=== PATIENT | male | born 1950 | race Caucasian/White ===

== ENCOUNTER → 2016-11-23 | Outpatient (CLI) | payer BC, MEDICARE ==
[~2016-11-23] MED LIST: CENT1TAB PO; CIPR500T89 PO; LISI-538 PO; OXYC15TA76 PO; TYLE650T30 PO
== END | disposition home or self-care (01) ==
LOC: M LAB 08:55
PROVIDERS: ATTEND Urology
DX: C61 Malignant neoplasm of prostate (principal)

== ENCOUNTER → 2017-03-01 | Outpatient (CLI) | payer BC, MEDICARE | LOC: M LAB 13:16 | PROVIDERS: ATTEND Urology | DX: C61 Malignant neoplasm of prostate (principal) ==

== ENCOUNTER → 2017-06-07 | Outpatient (CLI) | payer BC ==
[~2017-06-07] MED LIST changes: +CIPR-249 PO; -CIPR500T89 PO
== END ==
LOC: M LAB 10:51
PROVIDERS: ATTEND Urology
DX: C61 Malignant neoplasm of prostate (principal)

== ENCOUNTER → 2017-09-06 | Outpatient (CLI) | payer BC | LOC: M LAB 11:33 | PROVIDERS: ATTEND Urology | DX: C61 Malignant neoplasm of prostate (principal) ==

== ENCOUNTER → 2017-12-13 | Outpatient (CLI) | payer BC ==
[2017-12-13 11:45] LABS: PROSTATIC SPECIFIC AG MONITOR < 0.01 NG/ML (< 4.0)
== END ==
LOC: M LAB 10:28
DX: Z85.46 Personal history of malignant neoplasm of prostate (principal)
CPT/HCPCS: 84153

== ENCOUNTER → 2018-11-12 | Outpatient (REF) | payer BC ==
[2018-11-12 13:53] LABS: FREE T4 1.02 NG/DL (0.76-1.46); RHEUMATOID FACTOR QUANT < 10.0 IU/ML (<15.0); TOTAL PROTEIN 7.1 GM/DL (6.4-8.2)
[2018-11-12 14:04] LABS: HEMOGLOBIN A1c 6.5 %
[2018-11-12 14:41] LABS: FOLATE 19.4 NG/ML
[2018-11-14 08:30] LABS: VITAMIN B12 LEVEL 731 PG/ML (232-1245)
[2018-11-18 10:36] LABS: PTT LUPUS TYPE ANTICOAG SCREEN 1.1 (0-1.2)
[2018-11-18 11:19] LABS: ALBUMIN % 59.3 % (55.8-66.1); ALPHA-1-GLOBULIN % 4.3 % (2.9-4.9); ALPHA-2-GLOBULINS % 13.5 % (7.1-11.8); BETA-1-GLOBULINS % 5.8 % (4.7-7.2); BETA-2-GLOBULINS % 5.2 % (3.2-6.5); GAMMA GLOBULIN % 11.9 % (11.1-18.8)
[2018-11-18 11:20] LABS: ALBUMIN 4.21 GM/DL (3.29-5.55); ALPHA-1-GLOBULINS 0.31 GM/DL (0.17-0.41); ALPHA-2-GLOBULINS 0.96 GM/DL (0.42-0.99); BETA-1-GLOBULINS 0.41 GM/DL (0.28-0.60); BETA-2-GLOBULINS 0.37 GM/DL (0.19-0.55); GAMMA GLOBULINS 0.84 GM/DL (0.65-1.58)
[2018-11-22 00:07] LABS: ANTINUCLEAR ANTIBODIES DIRECT Negative (Negative); VITAMIN B1 LEVEL WHOLE BLOOD 172.9 nmol/L (66.5-200.0); VITAMIN B6,PYRIDOXAL PHOSPHATE 27.3 ug/L (5.3-46.7); VITAMIN E(ALPHA TOCOPHEROL) 15.3 mg/L (9.0-29.0); VITAMIN E(GAMMA TOCOPHEROL) 0.7 mg/L (0.5-4.9)
== END ==
LOC: M LABNEURO 11:02
PROVIDERS: ATTEND Psychiatry & Neurology Neurology
DX: G62.9 Polyneuropathy, unspecified (principal); M54.5 Low back pain; G89.29 Other chronic pain

== ENCOUNTER → 2018-12-18 | Outpatient (CLI) | payer BC | LOC: M LAB 14:31 | PROVIDERS: ATTEND Nurse Practitioner Women's Health | DX: Z85.46 Personal history of malignant neoplasm of prostate (principal) ==

== ENCOUNTER → 2019-01-22 | Outpatient (CLI) | payer BC ==
[2019-01-22 12:29] LABS: CHOLESTEROL RISK RATIO 5.628 (<5)
[2019-01-22 12:39] LABS: HEMOGLOBIN A1c 6.6 %
== END ==
LOC: M LAB 11:13
PROVIDERS: ATTEND Nurse Practitioner
DX: I10 Essential (primary) hypertension (principal); E78.5 Hyperlipidemia, unspecified; R73.01 Impaired fasting glucose

== ENCOUNTER → 2019-01-22 | Outpatient (CLI) | payer BC ==
[2019-01-22 12:26] LABS: ALBUMIN 3.8 GM/DL (3.2-5.2); ALT/SGPT 28 U/L (12-78); BILIRUBIN,DIRECT < 0.1 MG/DL (0.0-0.2); BILIRUBIN,TOTAL 0.5 MG/DL (0.2-1.0); TOTAL PROTEIN 6.9 GM/DL (6.4-8.2)
[2019-01-23 10:26] LABS: HEPATITIS B SURFACE ANTIBODY NEGATIVE (POSITIVE)
[2019-01-23 10:37] LABS: HEPATITIS B SURFACE ANTIGEN NEGATIVE (NEGATIVE)
[2019-01-27 08:10] LABS: ANTI-MITOCHONDRIAL ANTIBODY <20.0 Units (0.0-20.0); ANTI-SMOOTH MUSCLE ANTIBODY 8 Units (0-19); ANTINUCLEAR ANTIBODIES DIRECT Negative (Negative); HEPATITIS A IgG TOTAL Negative (Negative); LIVER-KIDNEY MICROSOMAL ABY <20.1 Units (0.0-20.0)
== END ==
LOC: M LAB 11:10
PROVIDERS: ATTEND Internal Medicine Gastroenterology
DX: K76.0 Fatty (change of) liver, not elsewhere classified (principal)

== ENCOUNTER 2019-03-12 07:42 | Day surgery (SDC) | payer BC ==
[~2019-03-12] VITALS: Ht 188 cm; Wt 97.5 kg
[~2019-03-12 07:42] MED LIST changes: +FLAX1300 PO; +METF-839 PO; +MULTCAP PO; +NS 1,000 ML IV ONE; +RA M200C4 PO; +RA T500C2 PO
[2019-03-12] MEDS ORDERED: LIDOCAINE 2% INJ 100 MG/5 ML SDV (FOR ANES.) As Ordered ONE (09:03)
[2019-03-12] MEDS ORDERED: PROPOFOL 200 MG/20 ML VIAL As Ordered ONE (09:03)
--- NOTE | 2019-03-12 09:58 | ROOR ---
Patient Name: Yosvany Stanton Procedure Date: 03/12/2019 9:09 AM Date of : 1950 Age: 68 Room: [facility] Gender: Male Note Status: Finalized Procedure: Colonoscopy Indications: Screening for colorectal malignant neoplasm Providers: Miki Solares MD Referring MD: Jasmyne Griffin NP Requesting Provider: Medicines: Monitored Anesthesia Care Complications: No immediate complications. Procedure: Pre-Anesthesia Assessment: - Prior to the procedure, a History and Physical was performed, and patient medications and allergies were reviewed. The patient is competent. The risks and benefits of the procedure and the sedation options and risks were discussed with the patient. All questions were answered and informed consent was obtained. Patient identification and proposed procedure were verified by the physician, the nurse and the anesthesiologist in the procedure room. Mental Status Examination: alert and oriented. Airway Examination: normal oropharyngeal airway and neck mobility. Respiratory Examination: clear to auscultation. CV Examination: normal. Prophylactic Antibiotics: The patient does not require prophylactic antibiotics. Prior Anticoagulants: The patient has taken no previous anticoagulant or antiplatelet agents. ASA Grade Assessment: II - A patient with mild systemic disease. After reviewing the risks and benefits, the patient was deemed in satisfactory condition to undergo the procedure. The anesthesia plan was to use monitored anesthesia care (MAC). Immediately prior to administration of medications, the patient was re-assessed for adequacy to receive sedatives. The heart rate, respiratory rate, oxygen saturations, blood pressure, adequacy of pulmonary ventilation, and response to care were monitored throughout the procedure. The physical status of the patient was re-assessed after the procedure. The Colonoscope was introduced through the anus and advanced to the terminal ileum, with identification of the appendiceal orifice and IC valve. The colonoscopy was performed without difficulty. The patient tolerated the procedure well. The quality of the bowel preparation was good. The terminal ileum, ileocecal valve, appendiceal orifice, and rectum were photographed. Scope insertion time was 3 minutes. Scope withdrawal time was 9 minutes. The total duration of the procedure was 12 minutes. Findings: The perianal and digital rectal examinations were normal. A 8 mm polyp was found in the rectum. The polyp was sessile. The polyp was removed with a cold snare. Resection and retrieval were complete. Verification of patient identification for the specimen was done by the physician and nurse using the patient's name, date and medical record number. Estimated blood loss was minimal. Scattered small and large-mouthed diverticula were found from sigmoid to ascending colon. There was no evidence of diverticular bleeding. Non-bleeding external and internal hemorrhoids were found during retroflexion. The hemorrhoids were small. Impression: - One 8 mm polyp in the rectum, removed with a cold snare. Resected and retrieved. - Moderate diverticulosis from sigmoid to ascending colon. There was no evidence of diverticular bleeding. - Non-bleeding external and internal hemorrhoids. Recommendation: - Patient has a contact number available for emergencies. The signs and symptoms of potential delayed complications were discussed with the patient. Return to normal activities tomorrow. Written discharge instructions were provided to the patient. - High fiber diet. - Continue present medications. - Await pathology results. - Repeat colonoscopy in 5-10 years for surveillance based on pathology results. - Based on the biopsy results you will receive a phone call from GI clinic in 2-3 weeks to review the pathology results AND/OR your results will be faxed to your Primary care physician. - Return to primary care physician. Miki Solares MD Miki Solares MD 03/12/2019 9:57:51 AM Electronically signed by Miki Solares MD Number of Addenda: 0 Note Initiated On: 03/12/2019 9:09 AM Estimated Blood Loss: Estimated blood loss was minimal.
[2019-03-12 10:10] VITALS: BP 137/73
== END 2019-03-12 10:13 | disposition home or self-care (01) ==
LOC: M OPP 07:42
PROVIDERS: ATTEND Internal Medicine Gastroenterology
DX: Z12.11 Encounter for screening for malignant neoplasm of colon (principal); K62.1 Rectal polyp; K64.8 Other hemorrhoids; K57.30 Diverticulosis of large intestine without perforation or abscess without bleeding; Z79.899 Other long term (current) drug therapy; Z79.84 Long term (current) use of oral hypoglycemic drugs

== ENCOUNTER 2019-03-22 19:37 | Emergency (ER) | payer BC ==
[~2019-03-22] VITALS: Ht 185.4 cm; Wt 113.6 kg
[~2019-03-22 19:37] MED LIST changes: -NS 1,000 ML IV ONE
[2019-03-22] MEDS ORDERED: NS 1,000 ML IV ONE (20:15)
[2019-03-22 20:17] LABS: BASO # 0.1 10^3/uL (0.0-0.2); BASO % 0.5 % (0.0-1.0); EOS # 0.4 10^3/uL (0.0-0.50); EOS % 3.7 % (0.0-3.0); HEMATOCRIT 45.1 % (42.0-52.0); HEMOGLOBIN 15.4 g/dl (13.5-17.5); LYMPH # 3.9 10^3/uL (1.5-4.5); LYMPH % 37.4 % (24.0-44.0); MEAN CORPUSCULAR HEMOGLOBIN 30.1 pg (27.0-33.0); MEAN CORPUSCULAR HGB CONC 34.1 g/dl (32.0-36.5); MEAN CORPUSCULAR VOLUME 88.1 fl (80.0-96.0); MONO # 0.8 10^3/uL (0.0-0.8); MONO % 7.6 % (0.0-5.0); NEUTROPHILS # 5.3 10^3/uL (1.8-7.7); NEUTROPHILS % 50.4 % (36.0-66.0); PLATELET COUNT, AUTOMATED 205 10^3/uL (150-450); RED BLOOD COUNT 5.12 10^6/uL (4.30-6.10); WHITE BLOOD COUNT 10.4 10^3/uL (4.0-10.0)
[2019-03-22 20:28] LABS: INR 1.04; PROTHROMBIN TIME 13.7 SECONDS (12.1-14.4)
[2019-03-22 20:52] LABS: ALBUMIN 3.8 GM/DL (3.2-5.2); ALT/SGPT 29 U/L (12-78); BILIRUBIN,TOTAL 0.5 MG/DL (0.2-1.0); BLOOD UREA NITROGEN 16 MG/DL (7-18); CALCIUM LEVEL 9.1 MG/DL (8.8-10.2); CARBON DIOXIDE LEVEL 28 MEQ/L (21-32); CHLORIDE LEVEL 103 MEQ/L (98-107); CPK CREATINE PHOSPHOKINASE 64 U/L (39-308); CREATININE FOR GFR 0.95 MG/DL (0.70-1.30); GLOMERULAR FILTRATION RATE > 60.0 (>49); GLUCOSE, FASTING 117 MG/DL (70-100); LIPASE 104 U/L (73-393); MAGNESIUM LEVEL 2.3 MG/DL (1.8-2.4); MB/CK RELATIVE INDEX 1.88 (< OR =4); SODIUM LEVEL 142 MEQ/L (136-145); TOTAL PROTEIN 6.9 GM/DL (6.4-8.2); TROPONIN I < 0.02 NG/ML (< 0.10)
[2019-03-22 22:22] VITALS: BP 143/84
--- NOTE | 2019-03-23 02:11 | REP ---
Clinical: Chest pain . Comparison: 11/26/2015 . Findings: The mediastinum and cardiac silhouette are stable and within normal limits for portable technique. The lung chaudhari are clear without acute consolidation, effusion, or pneumothorax. Skeletal structures are intact. Impression: No acute cardiopulmonary process appreciated. Electronically Signed by Ramirez Osullivan MD 03/23/2019 02:02 A
--- NOTE | 2019-03-23 15:07 | ECGEPIP ---
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
== END 2019-03-22 22:54 | disposition home or self-care (01) ==
LOC: M ED 19:37
DX: R00.2 Palpitations (principal); I49.3 Ventricular premature depolarization; E11.9 Type 2 diabetes mellitus without complications; I10 Essential (primary) hypertension; Z79.899 Other long term (current) drug therapy; Z79.84 Long term (current) use of oral hypoglycemic drugs

== ENCOUNTER → 2019-05-18 | Outpatient (CLI) | payer BC ==
[2019-05-18 10:17] LABS: ALBUMIN 3.9 GM/DL (3.2-5.2); BILIRUBIN,DIRECT 0.3 MG/DL (0.0-0.2); BILIRUBIN,TOTAL 0.8 MG/DL (0.2-1.0); CHOLESTEROL RISK RATIO 2.511 (<5); TOTAL PROTEIN 7.1 GM/DL (6.4-8.2)
== END ==
LOC: M LAB 09:17
PROVIDERS: ATTEND Internal Medicine Cardiovascular Disease
DX: E78.2 Mixed hyperlipidemia (principal)

== ENCOUNTER → 2019-06-24 | Outpatient (CLI) | payer BC | LOC: M LAB 14:04 | PROVIDERS: ATTEND Nurse Practitioner Women's Health | DX: Z85.46 Personal history of malignant neoplasm of prostate (principal) ==

== ENCOUNTER → 2019-12-23 | Outpatient (CLI) | payer BC | LOC: M LAB 11:10 | PROVIDERS: ATTEND Nurse Practitioner Women's Health | DX: Z85.46 Personal history of malignant neoplasm of prostate (principal) ==

== ENCOUNTER → 2020-06-28 | Outpatient (CLI) | payer BC ==
[~2020-06-28] MED LIST changes: +OXYC-1 PO; -OXYC15TA76 PO
== END ==
LOC: M LAB 09:53
PROVIDERS: ATTEND Nurse Practitioner Women's Health
DX: Z85.46 Personal history of malignant neoplasm of prostate (principal)

== ENCOUNTER → 2020-12-28 | Outpatient (CLI) | payer BC ==
[~2020-12-28] MED LIST changes: -LISI-538 PO; +LISI20TA33 PO
== END ==
LOC: M LAB 10:51
PROVIDERS: ATTEND Nurse Practitioner Women's Health
DX: Z85.46 Personal history of malignant neoplasm of prostate (principal)

== ENCOUNTER → 2021-08-09 | Outpatient (CLI) | payer BC ==
[~2021-08-09] MED LIST changes: +ASPI81CH33 PO; +CO Q200C10 PO; +EQL50TAB2 PO; +SLOWTAB2 PO
[2021-08-09 12:19] LABS: ALBUMIN 3.6 GM/DL (3.2-5.2); BLOOD UREA NITROGEN 17 MG/DL (7-18); CALCIUM LEVEL 9.2 MG/DL (8.8-10.2); CARBON DIOXIDE LEVEL 27 MEQ/L (21-32); CHLORIDE LEVEL 108 MEQ/L (98-107); CREATININE FOR GFR 0.83 MG/DL (0.70-1.30); GLOMERULAR FILTRATION RATE > 60.0 (>42); GLUCOSE, FASTING 97 MG/DL (70-100); PHOSPHORUS LEVEL 3.4 MG/DL (2.5-4.9); POTASSIUM SERUM 4.3 MEQ/L (3.5-5.1); SODIUM LEVEL 141 MEQ/L (136-145)
== END ==
LOC: M LAB 10:54
PROVIDERS: ATTEND Internal Medicine Cardiovascular Disease
DX: I11.9 Hypertensive heart disease without heart failure (principal)

== ENCOUNTER → 2021-09-22 | Outpatient (CLI) | payer BC ==
[2021-09-22 10:17] LABS: ALBUMIN 3.8 GM/DL (3.2-5.2); BLOOD UREA NITROGEN 13 MG/DL (7-18); CARBON DIOXIDE LEVEL 30 MEQ/L (21-32); CHLORIDE LEVEL 104 MEQ/L (98-107); CREATININE FOR GFR 0.84 MG/DL (0.70-1.30); GLOMERULAR FILTRATION RATE > 60.0 (>42); GLUCOSE, FASTING 120 MG/DL (70-100); PHOSPHORUS LEVEL 3.3 MG/DL (2.5-4.9); POTASSIUM SERUM 4.4 MEQ/L (3.5-5.1); SODIUM LEVEL 139 MEQ/L (136-145)
== END ==
LOC: M LAB 09:09
PROVIDERS: ATTEND Internal Medicine Cardiovascular Disease
DX: I11.9 Hypertensive heart disease without heart failure (principal)

== ENCOUNTER → 2021-12-28 | Outpatient (CLI) | payer BC | LOC: M LAB 09:52 | PROVIDERS: ATTEND Nurse Practitioner Women's Health | DX: Z85.46 Personal history of malignant neoplasm of prostate (principal) ==

== ENCOUNTER → 2023-03-13 | Outpatient (CLI) | payer BC, MEDICARE ==
[~2023-03-13] MED LIST changes: +EZET10TA21; +SPIR-10
[2023-03-13 09:30] LABS: CHOLESTEROL RISK RATIO 4.65 (<5); HDL CHOLESTEROL 33.1 MG/DL (>40); LDL CHOLESTEROL 78.3 MG/DL (<100); NON-HDL-C 120.9 MG/DL
== END ==
LOC: M LAB 08:06
PROVIDERS: ATTEND Internal Medicine Cardiovascular Disease
DX: E78.2 Mixed hyperlipidemia (principal)

== ENCOUNTER → 2023-08-21 | Outpatient (CLI) | payer BC ==
[2023-08-21 10:36] LABS: ALBUMIN 3.9 G/DL (3.2-5.2); ALKALINE PHOSPHATASE 103 U/L (46-116); ALT/SGPT 21 U/L (7.0-40); AST/SGOT 14 U/L (<34); BILIRUBIN,TOTAL 0.4 MG/DL (0.3-1.2); BLOOD UREA NITROGEN 14 MG/DL (9-23); CALCIUM LEVEL 9.2 MG/DL (8.3-10.6); CARBON DIOXIDE LEVEL 30 MMOL/L (20-31); CHLORIDE LEVEL 103 MMOL/L (98-107); CREATININE FOR GFR 0.86 MG/DL (0.70-1.30); GLOMERULAR FILTRATION RATE > 60.0 (>42); GLUCOSE, FASTING 104 MG/DL (74-106); POTASSIUM SERUM 3.9 MMOL/L (3.5-5.1); SODIUM LEVEL 141 MMOL/L (136-145); TOTAL PROTEIN 6.7 G/DL (5.7-8.2)
[2023-08-21 10:38] LABS: THYROID STIMULATING HORMONE 2.478 uIU/ML (0.55-4.78)
== END ==
LOC: M RAD 09:09
PROVIDERS: ATTEND Internal Medicine Cardiovascular Disease
DX: I49.1 Atrial premature depolarization (principal); I11.0 Hypertensive heart disease with heart failure

== ENCOUNTER → 2023-12-10 | Outpatient (REF) | payer BC, MEDICARE ==
[~2023-12-10] MED LIST changes: +ACYC1TAB PO; +ALLO100T PO; +AMIO200T49 PO; -SPIR-10; +SPIR-10 PO
[2023-12-10 10:24] LABS: HEMOGLOBIN 14.6 g/dl (13.5-17.5); MEAN CORPUSCULAR HEMOGLOBIN 30.2 pg (27.0-33.0); MEAN CORPUSCULAR HGB CONC 31.7 g/dl (32.0-36.5); PLATELET COUNT, AUTOMATED 217 10^3/uL (150-450); RED BLOOD COUNT 4.84 10^6/uL (4.30-6.10)
[2023-12-10 11:22] LABS: WHITE BLOOD COUNT 84.7 10^3/uL (4.0-10.0)
[2023-12-10 12:02] LABS: ALBUMIN 3.8 G/DL (3.2-5.2); ALKALINE PHOSPHATASE 101 U/L (46-116); ALT/SGPT 30 U/L (7.0-40); AST/SGOT 23 U/L (<34); BILIRUBIN,TOTAL 0.6 MG/DL (0.3-1.2); BLOOD UREA NITROGEN 14 MG/DL (9-23); CALCIUM LEVEL 8.8 MG/DL (8.3-10.6); CARBON DIOXIDE LEVEL 25 MMOL/L (20-31); CHLORIDE LEVEL 106 MMOL/L (98-107); GLOMERULAR FILTRATION RATE > 60.0 (>42); GLUCOSE, FASTING 126 MG/DL (74-106); POTASSIUM SERUM 4.5 MMOL/L (3.5-5.1); SODIUM LEVEL 139 MMOL/L (136-145); TOTAL PROTEIN 6.7 G/DL (5.7-8.2)
[2023-12-10 12:04] LABS: THYROID STIMULATING HORMONE 2.954 uIU/ML (0.55-4.78)
== END ==
LOC: M LAB REF 09:55
PROVIDERS: ATTEND Internal Medicine Cardiovascular Disease
DX: I49.1 Atrial premature depolarization (principal); I25.10 Atherosclerotic heart disease of native coronary artery without angina pectoris; I11.0 Hypertensive heart disease with heart failure; I50.32 Chronic diastolic (congestive) heart failure

== ENCOUNTER 2023-12-18 10:42 | Day surgery (SDC) | payer BC ==
[~2023-12-18] VITALS: Ht 188 cm; Wt 99.8 kg
[~2023-12-18 10:42] MED LIST changes: +VENC1TAB PO
[2023-12-18] MEDS ORDERED: LR 1,000 ML IV SCH (11:45)
[2023-12-18] MEDS ORDERED: MIDAZOLAM INJ 2MG/2ML VIAL As Ordered ONE (12:03)
[2023-12-18] MEDS ORDERED: LIDOCAINE 2% 100MG/5ML SDV (FOR ANES.) As Ordered ONE (12:04)
[2023-12-18] MEDS ORDERED: fentaNYL 100 MCG/2 ML INJECTION As Ordered ONE (12:04)
[2023-12-18] MEDS ORDERED: propofoL 200 MG/20 ML VIAL As Ordered ONE (12:04)
[2023-12-18] MEDS: LIDOCAINE 1% SDV 30ML VIAL As Ordered ONE (13:24)
[2023-12-18] MEDS: HEPARIN SOD (PORCINE) 5000UNITS/ML 1ML VIAL/SYRINGE As Ordered ONE (13:24)
[2023-12-18] MEDS: ceFAZolin SOD 2 GM in IV 1 EA IV ONE (13:42)
[2023-12-18] MEDS ORDERED: ACETAMINOPHEN 1000MG 100ML IV BAG As Ordered ONE (13:50)
[2023-12-18 15:10] VITALS: BP 180/93; TEMP 96.8; O2SAT 97
== END 2023-12-18 15:13 | disposition home or self-care (01) ==
LOC: M SDC 10:42
PROVIDERS: ATTEND Surgery
DX: C91.10 Chronic lymphocytic leukemia of B-cell type not having achieved remission (principal); E11.9 Type 2 diabetes mellitus without complications; R06.83 Snoring; Z88.8 Allergy status to other drugs, medicaments and biological substances; Z79.899 Other long term (current) drug therapy
CPT/HCPCS: 36561; 71045; 76000; C1788; J0131; J0665; J0690; J2250; J3010

== ENCOUNTER → 2024-04-13 | Outpatient (CLI) | payer BC ==
[~2024-04-13] MED LIST changes: +VENC100T PO
== END ==
LOC: M CARPUL 07:25
PROVIDERS: ATTEND Internal Medicine Cardiovascular Disease
DX: I50.32 Chronic diastolic (congestive) heart failure (principal)

== ENCOUNTER → 2024-06-08 | Outpatient (CLI) | payer BC ==
[2024-06-08 09:17] LABS: BASO % 0.3 % (0.0-1.0); EOS % 0.5 % (0.0-3.0); HEMATOCRIT 42.9 % (42.0-52.0); HEMOGLOBIN 14.6 g/dl (13.5-17.5); LYMPH # 0.8 10^3/uL (1.5-5.0); LYMPH % 14.4 % (24.0-44.0); MEAN CORPUSCULAR HEMOGLOBIN 31.9 pg (27.0-33.0); MEAN CORPUSCULAR VOLUME 93.9 fl (80.0-96.0); MONO # 0.6 10^3/uL (0.0-0.8); MONO % 10.7 % (2.0-8.0); NEUTROPHILS # 4.3 10^3/uL (1.5-8.5); NEUTROPHILS % 73.4 % (36.0-66.0); PLATELET COUNT, AUTOMATED 146 10^3/uL (150-450); RED BLOOD COUNT 4.57 10^6/uL (4.30-6.10); WHITE BLOOD COUNT 5.8 10^3/uL (4.0-10.0)
[2024-06-08 09:39] LABS: ALBUMIN 3.7 G/DL (3.2-5.2); ALKALINE PHOSPHATASE 95 U/L (46-116); ALT/SGPT 66 U/L (7.0-40); AST/SGOT 36 U/L (<34); BILIRUBIN,TOTAL 0.9 MG/DL (0.3-1.2); BLOOD UREA NITROGEN 13 MG/DL (9-23); CALCIUM LEVEL 9.2 MG/DL (8.3-10.6); CARBON DIOXIDE LEVEL 27 MMOL/L (20-31); CHLORIDE LEVEL 104 MMOL/L (98-107); CREATININE FOR GFR 0.92 MG/DL (0.70-1.30); GLOMERULAR FILTRATION RATE > 60.0 (>42); GLUCOSE, FASTING 162 MG/DL (74-106); POTASSIUM SERUM 4.5 MMOL/L (3.5-5.1); SODIUM LEVEL 138 MMOL/L (136-145); TOTAL PROTEIN 6.6 G/DL (5.7-8.2)
[2024-06-08 09:42] LABS: THYROID STIMULATING HORMONE 2.587 uIU/ML (0.55-4.78)
== END ==
LOC: M LAB 08:25
PROVIDERS: ATTEND Internal Medicine Cardiovascular Disease
DX: I49.1 Atrial premature depolarization (principal)

== ENCOUNTER → 2024-08-04 | Outpatient (CLI) | payer BC ==
[~2024-08-04] VITALS: Ht 188 cm; Wt 104.0 kg
[~2024-08-04] MED LIST changes: +LIDOCAINE 1% MDV 20ML VIAL As Ordered ONE; +MIDAZOLAM INJ 2MG/2ML VIAL As Ordered ONE; +ceFAZolin 2 GM/D5W 50 ML IV BAG As Ordered ONE; +fentaNYL 100 MCG/2 ML INJECTION As Ordered ONE
[2024-08-04 07:00] VITALS: TEMP 97.3
[2024-08-04] MEDS: ceFAZolin SOD 2 GM in IV 1 EA IV ONE (07:59)
[2024-08-04] MEDS: NS 1,000 ML IV SCH (07:59)
[2024-08-04 08:56] VITALS: BP 146/74; O2SAT 97
== END ==
LOC: M IRPRO 06:48
PROVIDERS: ATTEND Internal Medicine Hematology & Oncology
DX: C91.10 Chronic lymphocytic leukemia of B-cell type not having achieved remission (principal)
CPT/HCPCS: 36590; 99152; J0690; J2250; J3010

== ENCOUNTER → 2024-08-28 | Outpatient (CLI) | payer BC ==
[~2024-08-28] MED LIST changes: -LIDOCAINE 1% MDV 20ML VIAL As Ordered ONE; -MIDAZOLAM INJ 2MG/2ML VIAL As Ordered ONE; -ceFAZolin 2 GM/D5W 50 ML IV BAG As Ordered ONE; -fentaNYL 100 MCG/2 ML INJECTION As Ordered ONE
== END ==
LOC: M RAD 10:22
PROVIDERS: ATTEND Internal Medicine Hematology & Oncology
DX: C91.10 Chronic lymphocytic leukemia of B-cell type not having achieved remission (principal); K76.0 Fatty (change of) liver, not elsewhere classified; R16.0 Hepatomegaly, not elsewhere classified

== ENCOUNTER → 2024-08-28 | Outpatient (CLI) | payer BC | LOC: M EKG 10:27 | PROVIDERS: ATTEND Internal Medicine Cardiovascular Disease | DX: I49.1 Atrial premature depolarization (principal); I49.3 Ventricular premature depolarization; I44.0 Atrioventricular block, first degree ==

== ENCOUNTER → 2024-09-08 | Outpatient (CLI) | payer BC | LOC: M PLAIMG 10:31 | PROVIDERS: ATTEND Internal Medicine Cardiovascular Disease | DX: I50.32 Chronic diastolic (congestive) heart failure (principal); R94.31 Abnormal electrocardiogram [ECG] [EKG]; I11.0 Hypertensive heart disease with heart failure ==

== ENCOUNTER → 2024-12-16 | Outpatient (CLI) | payer BC ==
[2024-12-16 09:43] LABS: BASO % 0.2 % (0.0-1.0); EOS % 0.9 % (0.0-3.0); HEMATOCRIT 40.7 % (42.0-52.0); LYMPH # 0.7 10^3/uL (1.5-5.0); LYMPH % 16.4 % (24.0-44.0); MEAN CORPUSCULAR HEMOGLOBIN 33.8 pg (27.0-33.0); MEAN CORPUSCULAR HGB CONC 34.4 g/dl (32.0-36.5); MEAN CORPUSCULAR VOLUME 98.3 fl (80.0-96.0); MONO # 0.6 10^3/uL (0.0-0.8); MONO % 13.1 % (2.0-8.0); NEUTROPHILS % 68.9 % (36.0-66.0); PLATELET COUNT, AUTOMATED 138 10^3/uL (150-450); RED BLOOD COUNT 4.14 10^6/uL (4.30-6.10); WHITE BLOOD COUNT 4.3 10^3/uL (4.0-10.0)
[2024-12-16 10:34] LABS: THYROID STIMULATING HORMONE 2.329 uIU/ML (0.55-4.78)
[2024-12-16 10:36] LABS: ALBUMIN 3.6 G/DL (3.2-5.2); ALKALINE PHOSPHATASE 103 U/L (40-129); ALT/SGPT 68 U/L (7.0-40); AST/SGOT 37 U/L (<34); BILIRUBIN,TOTAL 0.6 MG/DL (0.3-1.2); BLOOD UREA NITROGEN 15 MG/DL (9-23); CALCIUM LEVEL 8.4 MG/DL (8.3-10.6); CARBON DIOXIDE LEVEL 26 MMOL/L (20-31); CHLORIDE LEVEL 107 MMOL/L (98-107); CREATININE FOR GFR 0.93 MG/DL (0.70-1.30); GLOMERULAR FILTRATION RATE > 60.0 (>42); GLUCOSE, FASTING 160 MG/DL (74-106); POTASSIUM SERUM 4.3 MMOL/L (3.5-5.1); SODIUM LEVEL 142 MMOL/L (136-145); TOTAL PROTEIN 6.5 G/DL (5.7-8.2)
== END ==
LOC: M LAB 09:11
PROVIDERS: ATTEND Internal Medicine Cardiovascular Disease
DX: I49.1 Atrial premature depolarization (principal)

== ENCOUNTER → 2024-12-16 | Outpatient (CLI) | payer BC | LOC: M RAD 09:08 | PROVIDERS: ATTEND Registered Nurse | DX: I49.1 Atrial premature depolarization (principal) ==

== ENCOUNTER → 2025-05-10 | Outpatient (CLI) | payer BC ==
[~2025-05-10] MED LIST changes: +ACYC-438 PO; -ACYC1TAB PO; +AMIO100T11; -AMIO200T49 PO; +AMIO200T54 PO; -EQL50TAB2 PO; +VITA1TAB82 PO
== END ==
LOC: M RAD 10:16
DX: R74.01 Elevation of levels of liver transaminase levels (principal); C91.10 Chronic lymphocytic leukemia of B-cell type not having achieved remission

== ENCOUNTER → 2025-05-20 | Outpatient (CLI) | payer BC ==
[~2025-05-20] MED LIST changes: +ISOVUE-370 76% 100 ML VIAL As Ordered ONE; -RA T500C2 PO; +SLOW1TAB3 PO; -SLOWTAB2 PO; +TURM500C10 PO
== END ==
LOC: M RAD 14:08
PROVIDERS: ATTEND Specialist
DX: C91.10 Chronic lymphocytic leukemia of B-cell type not having achieved remission (principal); K86.89 Other specified diseases of pancreas; E27.9 Disorder of adrenal gland, unspecified; K57.30 Diverticulosis of large intestine without perforation or abscess without bleeding; K40.90 Unilateral inguinal hernia, without obstruction or gangrene, not specified as recurrent
CPT/HCPCS: 74178; Q9967

== ENCOUNTER → 2025-06-24 | Outpatient (REF) | payer BC ==
[~2025-06-24] MED LIST changes: -ISOVUE-370 76% 100 ML VIAL As Ordered ONE
[2025-06-24 16:53] LABS: ESTIMATED AVERAGE GLUCOSE 143.0 MG/DL (60-110)
[2025-06-24 17:17] LABS: ALT/SGPT 56 U/L (7.0-40); AST/SGOT 51 U/L (<34); CALCIUM LEVEL 8.7 MG/DL (8.3-10.6); CARBON DIOXIDE LEVEL 26 MMOL/L (20-31); CHLORIDE LEVEL 105 MMOL/L (98-107); CHOLESTEROL LEVEL 212 MG/DL (<200); CHOLESTEROL RISK RATIO 5.66 (<5); CREATININE FOR GFR 0.93 MG/DL (0.70-1.30); GLOMERULAR FILTRATION RATE 86.2 (>42); NON-HDL-C 174.6 MG/DL; POTASSIUM SERUM 4.3 MMOL/L (3.5-5.1); SODIUM LEVEL 144 MMOL/L (136-145); TRIGLYCERIDES LEVEL 524 MG/DL (<150)
== END ==
LOC: M LAB REF 15:48
PROVIDERS: ATTEND Internal Medicine
DX: E78.5 Hyperlipidemia, unspecified (principal); E11.9 Type 2 diabetes mellitus without complications

== ENCOUNTER → 2025-10-05 | Outpatient (CLI) | payer BC ==
[~2025-10-05] MED LIST changes: -EZET10TA21; +EZET10TA57
== END ==
LOC: M RAD 11:14
PROVIDERS: ATTEND Nurse Practitioner Family
DX: I49.1 Atrial premature depolarization (principal)